=== PATIENT | male | born 1965 | race Caucasian/White ===

== ENCOUNTER 2016-10-06 23:20 | Emergency (ER) | payer BC ==
[~2016-10-06] VITALS: Ht 188 cm; Wt 132.3 kg
[2016-10-06 23:21] VITALS: BP 180/97
[2016-10-06] MEDS ORDERED: FURO20TA2 PO (23:32)
[2016-10-06] MEDS ORDERED: ATOR1TAB21 PO (23:32)
[2016-10-06] MEDS ORDERED: CARV12.5 PO (23:32)
[2016-10-06] MEDS ORDERED: LOSA25TA8 PO (23:32)
--- NOTE | 2016-10-07 01:39 | REP ---
Clinical: Acute abdominal pain. Comparison: None. Findings: Lung bases are clear. Visualized heart and pericardium normal. Liver, spleen, pancreas, gallbladder, by lateral adrenal glands and kidneys are normal for noncontrast evaluation. Specifically, no perinephric stranding, hydroureteronephrosis or obstructing ureteral calculi are identified. The enteric system is without obstruction or acute inflammatory process. Normal terminal ileum and appendix identified in the right lower quadrant. Pelvis demonstrates collapsed normal bladder and age appropriate prostate/seminal vesicles. No ascites. No adenopathy. Abdominal aorta without aneurysm. Surrounding musculoskeletal structures demonstrate age-related changes without focal osseous abnormality. Impression: Normal noncontrast CT of the abdomen and pelvis. No acute abdominopelvic pathology appreciated. Signed by Arnav Mora MD 10/07/2016 01:30 A
[2016-10-07 01:44] LABS: BASO % 0.4 % (0.0-1.0); EOS # 0.1 K/mm3 (0.0-0.50); EOS % 1.7 % (0.0-3.0); LARGE UNSTAINED CELL # 0.1 K/mm3 (0.0-0.4); LARGE UNSTAINED CELL % 0.9 % (0.0-4.0); LYMPH # 1.1 K/mm3 (1.5-4.5); LYMPH % 13.7 % (24.0-44.0); MEAN CORPUSCULAR HEMOGLOBIN 30.2 pg (27.0-33.0); MEAN CORPUSCULAR HGB CONC 34.6 g/dl (32.0-36.5); MEAN CORPUSCULAR VOLUME 87.4 fl (80.0-96.0); MONO # 0.4 K/mm3 (0.0-0.8); MONO % 5.1 % (0.0-5.0); NEUTROPHILS # 6.5 K/mm3 (1.8-7.7); NEUTROPHILS % 78.2 % (36.0-66.0); PLATELET COUNT, AUTOMATED 184 k/mm3 (150-450); WHITE BLOOD COUNT 8.2 K/mm3 (4.0-10.0)
[2016-10-07 02:44] LABS: ALBUMIN 3.8 GM/DL (3.2-5.2); ALBUMIN/GLOBULIN RATIO 1.36 (1.00-1.93); ALKALINE PHOSPHATASE 57 U/L (45-117); ALT/SGPT 37 U/L (12-78); AMYLASE 40 U/L (25-115); ANION GAP 11 MEQ/L (8-16); AST/SGOT 25 U/L (15-37); BILIRUBIN,DIRECT 0.1 MG/DL (0.0-0.2); BILIRUBIN,TOTAL 0.4 MG/DL (0.2-1.0); BLOOD UREA NITROGEN 15 MG/DL (7-18); CALCIUM LEVEL 8.5 MG/DL (8.5-10.1); CARBON DIOXIDE LEVEL 27 MEQ/L (21-32); CHLORIDE LEVEL 100 MEQ/L (98-107); CREATININE FOR GFR 0.84 MG/DL (0.70-1.30); GLOMERULAR FILTRATION RATE > 60.0 (>56); GLUCOSE, FASTING 128 MG/DL (70-105); POTASSIUM SERUM 3.7 MEQ/L (3.5-5.1); SODIUM LEVEL 138 MEQ/L (136-145); TOTAL PROTEIN 6.6 GM/DL (6.4-8.2)
[2016-10-07] MEDS ORDERED: KETOROLAC 60 MG/2 ML VIAL (J1885) IM ONE (03:00)
== END 2016-10-07 03:12 | disposition home or self-care (01) ==
LOC: M ED 23:20 → EDSEX 23:20 → M ED 10-07 03:12
DX: M79.1 Myalgia (principal); M54.9 Dorsalgia, unspecified; I10 Essential (primary) hypertension; E78.5 Hyperlipidemia, unspecified; Z79.899 Other long term (current) drug therapy
CPT/HCPCS: 36415; 74176; 80048; 80076; 81001; 82150; 83690; 85025; 87086; 96372; 99283; J1885

== ENCOUNTER → 2016-10-07 | Outpatient (CLI) | payer BC ==
[~2016-10-07] MED LIST: ATOR1TAB21 PO; CARV12.5 PO; FURO20TA2 PO; LOSA25TA8 PO
--- NOTE | 2016-10-08 01:27 | REP ---
Clinical: Right flank pain. Technique: Supine views of the abdomen and pelvis. Findings: Evaluation of the urinary tract system is limited due to technique and overlying bowel gas. No obvious urinary tract calcifications are appreciated. Bowel gas pattern is nonspecific. Skeletal structures demonstrate age-related degenerative changes primarily involving the pelvis and bilateral hips. Impression: Limited evaluation of the urinary tract calcifications. Nonspecific bowel gas pattern. Degenerative changes to the pelvis and hips. Signed by Arnav Mora MD 10/08/2016 01:18 A
== END ==
LOC: M WUC 19:11
PROVIDERS: ATTEND Physician Assistant
DX: M54.5 Low back pain (principal); N20.0 Calculus of kidney; M16.0 Bilateral primary osteoarthritis of hip